=== PATIENT | female | born 1980 | race Caucasian/White ===

== ENCOUNTER 2020-02-26 13:23 | Outpatient (CLI) | payer OTHER ==
[2020-02-26] MEDS ORDERED: GADOTERATE 10 MMOL/20 ML VIAL ONE (13:59)
[2020-03-09] MEDS ORDERED: IBUP200T64 PO (09:53)
== END 2020-02-26 23:59 | disposition home or self-care (01) ==
LOC: CFH 13:23
PROVIDERS: ATTEND Internal Medicine Hematology & Oncology
DX: C50.812 Malignant neoplasm of overlapping sites of left female breast (principal)
CPT/HCPCS: 77049; A9575; C8908; C8937

== ENCOUNTER 2020-03-11 08:07 | Day surgery (SDC) | payer OTHER ==
[2020-03-09 10:23] LABS: BASOPHILS # (AUTO) 0.03 x10^3/uL (0-0.1); BASOPHILS % (AUTO) 1 % (0-1); EOSINOPHILS # (AUTO) 0.14 x10^3/uL (0-0.4); EOSINOPHILS % (AUTO) 3 % (1-7); LYMPHOCYTES # (AUTO) 1.67 x10^3/uL (1-3.4); LYMPHOCYTES % (AUTO) 34 % (22-44); MD NO; MEAN CORPUSCULAR HEMOGLOBIN 31.6 pg (27.0-34.8); MEAN CORPUSCULAR HGB CONC 33.4 g/dL (32.4-35.8); MEAN CORPUSCULAR VOLUME 94.8 fL (80-100); MEAN PLATELET VOLUME 8.3 fL (7.4-10.4); MONOCYTES % (AUTO) 10 % (2-9); NEUTROPHILS % (AUTO) 53 % (42-75); PLATELET COUNT 415 x10^3/uL (130-400); RED BLOOD COUNT 3.97 x10^6/uL (3.82-5.3); RED CELL DISTRIBUTION WIDTH 14.8 % (9.6-15.2)
[~2020-03-11] VITALS: Ht 162.6 cm; Wt 76.2 kg
[~2020-03-11 08:07] MED LIST: BUPIVACAINE/PF-EPI 0.5% 1:200K ONE; IBUP200T64 PO; ISOSULFAN BLUE 10 MG/ML, 5ML IV ONE
[2020-03-11] MEDS ORDERED: LACTATED RINGERS 1,000 ML IV SCH (08:59)
[2020-03-11] MEDS ORDERED: CHLORHEXIDINE 15 ML UDC MM ONE (09:00)
[2020-03-11 09:01] VITALS: BP 110/77
[2020-03-11] MEDS ORDERED: ACET-1600 PO (09:01)
[2020-03-11 09:08] LABS: HCG UR SG 1.012 (1.003-1.030)
[2020-03-11] MEDS ORDERED: FENTANYL PF 250 MCG/5ML ONE (10:45)
[2020-03-11] MEDS ORDERED: MIDAZOLAM 1 MG/ML, 2ML ONE (10:45)
[2020-03-11] MEDS ORDERED: NEOSTIGMINE 1 MG/ML, 10ML ONE (10:55)
[2020-03-11] MEDS ORDERED: ONDANSETRON 2MG/ML, 2ML ONE (10:55)
[2020-03-11] MEDS ORDERED: GLYCOPYRROLATE 0.2MG/1ML, 5ML ONE (10:55)
[2020-03-11] MEDS ORDERED: PROPOFOL 10 MG/ML, 20ML ONE (10:55)
[2020-03-11] MEDS ORDERED: CEFAZOLIN 1,000 MG ONE (10:55)
[2020-03-11] MEDS ORDERED: DEXAMETHASONE 4 MG/ML, 1ML ONE (10:55)
[2020-03-11] MEDS ORDERED: ROCURONIUM 10MG/ML,5ML ONE (10:55)
[2020-03-11] MEDS ORDERED: SUCCINYLCHOLINE 20 MG/ML, 10ML ONE (10:55)
[2020-03-11] MEDS ORDERED: KETOROLAC 30 MG/1 ML ONE (11:40)
[2020-03-11] MEDS ORDERED: MEPERIDINE/PF 25MG/0.5ML IVPush PRN (12:30)
[2020-03-11] MEDS ORDERED: LABETALOL 5MG/ML, 20ML IV PRN (12:30)
[2020-03-11] MEDS ORDERED: ALBUTEROL SULFATE 2.5 MG/3 ML NPPB PRN (12:30)
[2020-03-11] MEDS ORDERED: hydrALAzine 20 MG/ML, 1ML IV PRN (12:30)
[2020-03-11] MEDS ORDERED: ACETAMINOPHEN 325 MG TABLET PO PRN (12:30)
[2020-03-11] MEDS ORDERED: FENTANYL PF 100 MCG/2ML IV PRN (12:30)
[2020-03-11] MEDS ORDERED: PROMETHAZINE 25 MG/ML, 1ML IVPush PRN (12:30)
[2020-03-11] MEDS ORDERED: HYDROmorphone 1 MG/ML, 1ML INJ IVPush PRN (12:30)
[2020-03-11] MEDS ORDERED: OXYcodone 5 MG/5 ML ORAL.SOL UDC PO PRN (12:30)
[2020-03-11] MEDS ORDERED: LORazepam 2 MG/ML, 1ML IVPush PRN (12:30)
[2020-03-11] MEDS ORDERED: FENTANYL PF 100 MCG/2ML ONE (12:35)
[2020-03-11] MEDS ORDERED: EPINEPHRINE 1 MG/ML, 1ML ONE (13:36)
[2020-03-11] MEDS ORDERED: BUPIVACAINE/PF 0.5% ONE (13:36)
== END 2020-03-11 17:05 | disposition home or self-care (01) ==
LOC: OUT 08:07 → EDSTATUS 11:30 → OUT 17:05
PROVIDERS: ATTEND Surgery
DX: C50.512 Malignant neoplasm of lower-outer quadrant of left female breast (principal); Z11.59 Encounter for screening for other viral diseases; Z79.899 Other long term (current) drug therapy; Z98.890 Other specified postprocedural states; Z72.89 Other problems related to lifestyle; Z82.49 Family history of ischemic heart disease and other diseases of the circulatory system
CPT/HCPCS: 19303; 36415; 38525; 38792; 76098; 81025; 85025; 87635; 88305; 88307; 88329; 88333; A9541; C1729; J0171; J0330; J0690; J1100; J1885; J2250; J2405; J2704; J2710; J3010; J7120

== ENCOUNTER → 2020-04-02 | Outpatient (CLI) | payer OTHER ==
[~2020-04-02] MED LIST changes: +ACET-1600 PO; -BUPIVACAINE/PF-EPI 0.5% 1:200K ONE; -ISOSULFAN BLUE 10 MG/ML, 5ML IV ONE
== END | disposition home or self-care (01) ==
LOC: ROC 14:11
PROVIDERS: ATTEND Radiology Radiation Oncology
DX: C50.512 Malignant neoplasm of lower-outer quadrant of left female breast (principal)
CPT/HCPCS: 99214; G0463

== ENCOUNTER → 2020-04-07 | Outpatient (CLI) | payer OTHER ==
[~2020-04-07] MED LIST changes: +OMNIPAQUE 350 MG/ML, 100ML BOTTLE ONE
== END | disposition home or self-care (01) ==
LOC: RAD 09:35
PROVIDERS: ATTEND Internal Medicine Hematology & Oncology
DX: C50.812 Malignant neoplasm of overlapping sites of left female breast (principal); K76.0 Fatty (change of) liver, not elsewhere classified; Z90.12 Acquired absence of left breast and nipple; Z90.49 Acquired absence of other specified parts of digestive tract
CPT/HCPCS: 71260; 74177; 78306; A9503; Q9967

== ENCOUNTER 2020-06-17 07:44 | Outpatient (CLI) | payer OTHER ==
[~2020-06-17 07:44] MED LIST changes: -OMNIPAQUE 350 MG/ML, 100ML BOTTLE ONE
== END 2020-06-17 23:59 | disposition home or self-care (01) ==
LOC: ROC 07:44
PROVIDERS: ATTEND Radiology Radiation Oncology
DX: C50.512 Malignant neoplasm of lower-outer quadrant of left female breast (principal); I10 Essential (primary) hypertension; E78.5 Hyperlipidemia, unspecified; E11.9 Type 2 diabetes mellitus without complications; Z79.899 Other long term (current) drug therapy
CPT/HCPCS: 99212; G0463

== ENCOUNTER → 2020-09-21 | Outpatient (CLI) | payer OTHER | END | disposition home or self-care (01) | LOC: CFH 07:03 | PROVIDERS: ATTEND Surgery | DX: Z12.31 Encounter for screening mammogram for malignant neoplasm of breast (principal) | CPT/HCPCS: 77063; 77067 ==

== ENCOUNTER → 2020-12-23 | Outpatient (CLI) | payer OTHER ==
[~2020-12-23] MED LIST changes: +OMNIPAQUE 350 MG/ML, 100ML BOTTLE ONE
== END | disposition home or self-care (01) ==
LOC: RAD 11:05
PROVIDERS: ATTEND Internal Medicine Hematology & Oncology
DX: C50.812 Malignant neoplasm of overlapping sites of left female breast (principal); K76.0 Fatty (change of) liver, not elsewhere classified; K76.89 Other specified diseases of liver
CPT/HCPCS: 71260; 74177; 78306; A9503; Q9967